=== PATIENT | female | born 1965 | race Caucasian/White ===

== ENCOUNTER 2017-05-18 16:04 | Emergency (ER) | payer SELFPAY ==
[~2017-05-18] VITALS: Ht 157.5 cm; Wt 88.0 kg
[2017-05-18 16:08] VITALS: Ht 157.5 cm; Wt 88.0 kg
[2017-05-18] MEDS ORDERED: HYDROCODONE/APAP (5/325) TAB PO ONE (17:00)
[2017-05-18] MEDS ORDERED: DIPHTH/TET/ACEL PERTUSS (ADULT) 0.5 ML VIAL IM* ONE (17:00)
--- NOTE | 2017-05-18 18:08 | RADRPT ---
PROCEDURE: CT Brain without contrast. CLINICAL INDICATION: Trauma due to a fall. Headaches. Facial pain. TECHNIQUE: A CT of the brain without contrast was performed utilizing axial sections from the skul l base through the vertex. The patient was scanned without intravenous contrast enhancement. Sagitta l and coronal reformatted images were obtained using the data from the axial images. Total exam DLP is 720.23 mGy-cm. CTDIvol is 44.19 mGy. One or more of the following dose reduction techniques we re used: Automated exposure control, adjustment of the mA and/or kV according to patient size, use o f iterative reconstruction technique. COMPARISON: None available FINDINGS: There is normal alonso-white matter differentiation. The ventricles and cisterns are normal. There is no intracranial hemorrhage or space-occupying lesion. There is no skull fracture or lytic lesion. IMPRESSION: 1. Normal noncontrast CT scan of the brain. 2. No intracranial hemorrhage. RPTAT: QQ .Mauricio Evans MD, MD Date Time Electronically viewed and signed by .Mauricio Evans MD, MD on 05/18/2017 18:07 .R/
--- NOTE | 2017-05-18 18:11 | RADRPT ---
PROCEDURE: CT facial bones CLINICAL INDICATION: Trauma to face TECHNIQUE: A CT of the facial bones was performed on a GE 64-slice CT scanner utilizing high-resol ution axial images. Sagittal, coronal, and multiplanar reformatted images were made. Additionally, 3-D reformatted images were made. The CTDIvol is 29.4 mGy and the DLP is 494 mGy-cm. COMPARISON: None. FINDINGS: Left periorbital soft tissue hematoma predominantly in the infraorbital aspect. The left globe is i ntact. No associated left orbital fractures. Bilateral temporomandibular joints are congruent. The osseous structures are intact with no evidence of fracture. The orbits, as visualized, appear i ntact. The visualized paranasal sinuses are clear. IMPRESSION: Left periorbital soft tissue hematoma without underlying fracture nor retro-orbital injury. Physician Sherri Date Time Electronically viewed and signed by Jean Marie Pryor Physician on 05/18/2017 18:11 ML/
--- NOTE | 2017-05-18 18:50 | ERA ---
ER Documentation Chief Complaint Date/Time DATE: 05/18/17 TIME: 18:41 Chief Complaint lt knee pain ,lt eyebrow lac s/p fall in bathroom and hit her face on metal HPI This is a 51-year-old female, Danish-speaking. 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 The patient had a mechanical trip and fall while in the bathroom just prior to arrival. She hit her left periorbital region on an piece of metal. The patient now sustained a laceration through the left upper eyelid. Patient denies any vision changes she does not wear contacts. She did not lose consciousness and does not have neck pain. The patient denies any pain currently. ROS All systems reviewed and are negative except as per history of present illness. Allergies Allergies: Coded Allergies: No Known Allergy (Unverified , 05/18/17) PMhx/Soc Medical and Surgical Hx: pt denies Medical Hx, pt denies Surgical Hx Hx Alcohol Use: No Hx Substance Use: No Hx Tobacco Use: No Physical Exam Vitals Vital Signs Date Time Temp Pulse Resp B/P Pulse Ox O2 Delivery O2 Flow Rate FiO2 05/18/17 16:08 98.1 90 18 146/98 98 Physical Exam Airway is intact Bilateral breath sounds Strong distal pulses No obvious deficits General: Well developed, well nourished, no acute distress Head: Normocephalic, atraumatic Eyes: The patient has an approximate 2.0 cm laceration through and through to the left upper eyelid that involves the tarsal plate. It is just lateral of midline. Pupils are equal and reactive. The patient has no evidence of afferent pupillary defect, extraocular movements are intact, no proptosis. ENT: Moist mucous membranes Neck: Supple, no lymphadenopathy, No midline tenderness, deformities, step-offs to the cervical spine, full active and passive range of motion without midline pain. Respiratory: Lungs clear bilaterally, no distress, no chest wall tenderness, no crepitus Cardiovascular: RRR, no murmurs, rubs, or gallops Abdominal: Soft, non-tender, non-distended, no peritoneal signs, pelvis is stable : Deferred MSK: No edema, no unilateral swelling, 5/5 strength, no midline tenderness deformities or step-offs to the thoracolumbar spine Neurologic: Alert and oriented, moving all extremities, normal speech, no focal weakness, no cerebellar signs Skin: No ecchymoses or bruising to the chest or abdomen Psych: Normal mood Results 24 hrs Current Medications Medications (Trade) Dose Ordered Sig/Jeremy Route PRN Reason Start Time Stop Time Status Last Admin Dose Admin Acetaminophen/ Hydrocodone Bitart ([place] (5/325)) 1 tab ONCE ONCE PO 05/18/17 17:00 05/18/17 17:01 DC 05/18/17 16:50 Diphtheria/ Tetanus/Acell Pertussis (Adacel) 0.5 ml ONCE ONCE IM* 05/18/17 17:00 05/18/17 17:01 DC 05/18/17 16:51 Procedures/MDM EKG, MONITORS, & DIAGNOSTIC IMAGING: ct b IMPRESSION: 1. Normal noncontrast CT scan of the brain. 2. No intracranial hemorrhage. RPTAT: QQ ct facial IMPRESSION: Left periorbital soft tissue hematoma without underlying fracture nor retro- orbital injury. MEDICAL DECISION MAKING: The patient had a mechanical trip and fall. She appears to have a laceration through and through the left upper eyelid involving the tarsal plate. This is a complicated laceration requiring ophthalmology repair. Luckily, the patient has no signs or symptoms of globe injury. She has normal pupils that are equal and reactive extraocular movements are intact and she has no clinical signs or symptoms concerning for orbital fracture or entrapment. Her tetanus is up-to- date. CT imaging of the head and facial bones would be appropriate, I will work to transfer the patient to a center that has ophthalmology. ER COURSE: Her tetanus is up-to-date. Her pain is well controlled. The patient CT imaging shows no evidence of fracture or bleeding. Multiple phone calls were made including [facility]. Dr. Romeo he does have privileges here but is not on- call is not available. We were able to obtain transfer to [facility]. Dr. Caraballo is the accepting ER physician and Dr. Quijano is the patient portal representative. The patient is stable for transfer and the benefits outweigh the risks. The patient was informed. This will be a lateral transfer secondary to higher level of care. I kept the patient and/or family informed of laboratory and diagnostic imaging results throughout the emergency room course. DISPOSITION PLAN: Transfer to [facility] for ophthalmology repair of a eyelid laceration involving the tarsal plate CONSULTATION: Accepting care team and consultations: I discussed the current laboratory data, diagnostic imaging and emergency care provided. Admitting team: Dr. Caraballo, Dr. Quijano Admitting team indication: Higher level of care Departure Diagnosis: Primary Impression: Left upper eyelid ulcer Additional Impression: Closed head injury Qualified Code: S09.90XA - Closed head injury, initial encounter Condition: Stable EMMA CHANG MD May 18, 2017 18:50
[2017-05-18 19:18] VITALS: BP 132/88; PULSE 75; RESP 17
== END 2017-05-18 20:08 | disposition short-term general hospital (02) ==
LOC: FTE 16:04 → E/R 20:08
DX: S01.112A Laceration without foreign body of left eyelid and periocular area, initial encounter (principal); S09.90XA Unspecified injury of head, initial encounter; W01.198A Fall on same level from slipping, tripping and stumbling with subsequent striking against other object, initial encounter; Y92.002 Bathroom of unspecified non-institutional (private) residence as the place of occurrence of the external cause; Z23 Encounter for immunization
CPT/HCPCS: 70450; 70486; 90471; 90715